=== PATIENT | male | born 1980 | race Caucasian/White ===

== ENCOUNTER → 2023-05-27 10:05 | Outpatient (CLI) | payer BC, SELFPAY ==
[2023-05-27 10:32] LABS: Sodium 140 mmol/L (137-145)
== END ==
PROVIDERS: Referring Provider Physician Assistant; Visit Provider Physician Assistant
DX: E22.0 Acromegaly and pituitary gigantism (principal); D35.2 Benign neoplasm of pituitary gland; D49.7 Neoplasm of unspecified behavior of endocrine glands and other parts of nervous system
CPT/HCPCS: 36415; 84295

== ENCOUNTER → 2023-05-28 07:56 | Outpatient (CLI) | payer BC, SELFPAY ==
[2023-05-28 10:15] LABS: Sodium Urine Random 40 mmol/L (30-90)
[2023-05-28 16:05] LABS: Appearance Urine UA CLEAR; Bilirubin Urine UA NEGATIVE (NEGATIVE); Color Urine UA YELLOW; Glucose Urine UA NEGATIVE (Negative); Ketones Urine UA NEGATIVE (NEGATIVE); Leukocyte Esterase Urine UA NEGATIVE (NEGATIVE); Nitrite Urine UA NEGATIVE (Negative); Occult Blood Urine UA NEGATIVE (Negative); Protein Urine UA NEGATIVE (Negative); Specific Gravity Urine UA <=1.005 (1.000-1.035); Urobilinogen Urine UA 0.2 E.U./dL (0.2)
[2023-05-29 16:56] LABS: Osmolality Urine 267 mOsmol/kg (.)
== END ==
PROVIDERS: Referring Provider Physician Assistant Surgical; Visit Provider Physician Assistant Surgical
DX: E22.0 Acromegaly and pituitary gigantism (principal)
CPT/HCPCS: 81003; 83935; 84300